=== PATIENT | male | born 1950 | race Caucasian/White ===

== ENCOUNTER → 2022-06-01 10:21 | Outpatient (REF) | payer OTHER, SELFPAY | LOC: RCS 10:21 | PROVIDERS: ATTENDING PHYSICIAN Internal Medicine Cardiovascular Disease; FAMILY PHYSICIAN Family Medicine | DX: I49.9 Cardiac arrhythmia, unspecified (principal); R94.31 Abnormal electrocardiogram [ECG] [EKG]; I10 Essential (primary) hypertension; E78.00 Pure hypercholesterolemia, unspecified | CPT/HCPCS: 93225; 93226 ==

== ENCOUNTER 2023-06-03 12:00 | Emergency (ER) | payer BC, SELFPAY ==
[2023-06-03 12:11] VITALS: BP 170/91
--- NOTE | 2023-06-03 12:23 | ED.GENMED ---
History of Present Illness
General
Chief Complaint: Blood Pressure Problem
Time Seen by Provider: 06/03/23 12:21
Travel History
Have you had any contact with someone who has COVID-19?: No
Do you have any symptoms of coronavirus? Fever > 100 degrees, chills, cough, shortness of breath, sore throat, loss of taste or smell, muscle aches, or headache?: No
History of Present Illness
History of Present Illness:
73-year-old male with history of hypertension presents the emergency department for evaluation of mild chest tightness as well as elevated blood pressures beginning yesterday. He denies any pain to the chest, denies any pleuritic worsening of
symptoms or exertional worsening of symptoms. He is approximately 3 weeks status post right total knee arthroplasty, states his rehab has been going well. He denies any significant leg swelling or calf discomfort. No recent fevers or chills.
Blood pressure has been markedly elevated despite taking his lisinopril that has been on for many years.
Review of Systems
Review of Systems
Allergies reviewed?: Yes
All Other Systems: ROS reviewed and negative except as documented in HPI and ROS
Phy Exam
Physical Exam
Physical Exam:
GEN: Well appearing, NAD, WDWN
HEENT: Oral mucosa moist, no scleral icterus
Cardiac: Regular rate and rhythm, no murmurs
Lung: No respiratory distress, no tachypnea, lungs clear to auscultation bilateral
MSK: No gross deformity or injuries. Status post right total knee arthroplasty, no wound dehiscence, incisional site is well-approximated. Range of motion trivial ecchymosis no extremity edema
Skin: Good color, no pallor or jaundice, no rashes
Neuro: AO x3, moves all extremities freely
Psych: Calm, cooperative
Course
Orders/Labs/Results
Orders:
Orders
06/03/23 12:13
Electrocardiogram (*1) Urgent
Reason for Study: Hypertension, Benign
EKG- Treatment ONCE
06/03/23 12:15
Electrocardiogram (*1) Urgent
Reason for Study: Fatigue / Weakness
EKG- Treatment ONCE
06/03/23 12:33
Venous Doppler Lwr Ext Rt [US Periph Venous LOWER Ext RT] Urgent
Comment:
Reason For Exam: calf/thigh pain, 3 wk s/p TKA
06/03/23 12:34
CR Chest - 2 Views Urgent
Comment:
Reason For Exam: chest tightness
06/03/23 12:41
Complete Blood Count/With Diff Urgent
Comprehensive Metabolic Panel Urgent
Troponin I Urgent
Abnormal Lab Results
06/03/23
12:41
RBC 3.82 L 10^6/uL
(4.70-6.10)
Hgb 11.4 L g/dL
(13.0-18.0)
Hct 32.2 L %
(39.0-52.0)
Abs Immat Gran (auto) 0.1 H 10^3/uL
(0-0.05)
Absolute Lymphs (auto) 1.1 L 10^3/uL
(1.2-3.4)
Immature Gran % 0.9 H %
(0-0.5)
Lymphocytes % 19.9 L %
(20.5-51.1)
Monocytes % 10.0 H %
(1.7-9.3)
BUN 27 H mg/dl
(9-20)
Glucose 119 H mg/dl
(70-99)
Total Protein 5.8 L g/dl
(6.3-8.2)
Albumin 3.3 L g/dl
(3.5-5.0)
06/03/23 12:41
06/03/23 12:41
Vital Signs
Initial and Last Documented VS:
Initial Vital Signs
Temp Pulse Resp BP Pulse Ox
98.3 F 93 16 170/91 98
06/03/23 12:11 06/03/23 12:11 06/03/23 12:11 06/03/23 12:11 06/03/23 12:11
Last Documented Vital Signs
Temp Pulse Resp BP Pulse Ox
98.3 F 72 12 177/83 99
06/03/23 12:11 06/03/23 14:29 06/03/23 14:29 06/03/23 15:25 06/03/23 14:29
MDM/Problems Addressed
MDM/Problems Addressed:
DVT ultrasound is negative for clot, labs are reassuring. EKG shows no signs of ischemia. Chest x-ray independently interpreted by me is unremarkable for acute disease. Doubt PE given the negative right lower extremity Doppler.
Comment
Comment:
EKG independently interpreted by me shows normal sinus rhythm at a rate of [address] changes concerning for ischemia
*Critical Care Note
Total Time (30-74mins, 75-104mins- exclusive of procedures): Not Applicable
ED Attending Note
-
Portions of this chart may have been created with voice recognition software.� Occasional wrong word or��sound alike� substitutions may have occurred due to the inherent limitations of voice recognition software.
Discharge Plan
Departure
Patient Disposition: Home (Routine Discharge)
Date of Disposition: 06/03/23
Time of Disposition: 15:31
Patient with high blood pressure during this ER visit?: No
Discharge Problem:
Elevated blood pressure reading
Instructions: High Blood Pressure (DC)
Referrals:
Ayush Perry MD [Family Provider] -
Activity Restrictions/Additional Instructions:
Discuss further blood pressure control with your primary care physician
Your ultrasound shows no evidence for blood clots
Interventions
Interventions:
ED- Fall Risk Assessment Last Done: 06/03/23 12:49
*ED COVID-19 Vaccine History Last Done: 06/03/23 12:11
ED- Cardiac Assessment Last Done: 06/03/23 12:49
ED- Neurological Assessment Last Done: 06/03/23 12:49
ED- Pulmonary Assessment Last Done: 06/03/23 12:49
[2023-06-03 12:49] VITALS: BMI 28.9
[2023-06-03 12:51] LABS: % Basophils 0.9 % (0-2); % Eosinophils 4.7 % (0-6); % Immature Granulocytes 0.9 % (0-0.5); % Lymphocytes 19.9 % (20.5-51.1); % Neutrophils 63.6 % (42.2-75.2); Absolute Basophils 0.1 10^3/uL (0-0.2); Absolute Eosinophils 0.3 10^3/uL (0-0.7); Absolute Immature Granulocytes 0.1 10^3/uL (0-0.05); Absolute Lymphocytes 1.1 10^3/uL (1.2-3.4); Absolute Monocytes 0.6 10^3/uL (0.1-0.6); Absolute Neutrophils 3.6 10^3/uL (1.4-6.5); Hematocrit 32.2 % (39.0-52.0); Hemoglobin 11.4 g/dL (13.0-18.0); Mean Corp Hgb Conc. 35.4 g/dL (33.0-37.0); Mean Corpuscular Hgb 29.8 pg (27.0-31.0); Mean Corpuscular Volume 84.3 fL (80.0-94.0); Mean Platelet Volume 9.7 fL (7.4-10.4); Nucleated Red Blood Cells % 0 % (-); Platelet Count 263 10^3/uL (130-400); Red Blood Cell Count 3.82 10^6/uL (4.70-6.10); Red Cell Dist. Width 13.2 % (11.5-14.5); White Blood Cell Count 5.7 10^3/uL (4.8-10.8)
[2023-06-03 13:13] LABS: ALT (SGPT) 37 U/L (0-50); AST (SGOT) 29 U/L (17-59); Albumin 3.3 g/dl (3.5-5.0); Alkaline Phosphatase 90 U/L (38-126); Blood Urea Nitrogen 27 mg/dl (9-20); Carbon Dioxide 25 mmol/L (22-30); Chloride 104 mmol/L (98-107); Estimated Creatinine Clearance 51 ml/min; Glucose 119 mg/dl (70-99); Potassium 3.9 mmol/L (3.5-5.1); Sodium 137 mmol/L (135-145); Total Bilirubin 0.6 mg/dl (0.2-1.3); Total Protein 5.8 g/dl (6.3-8.2); eGFR > 60.00
[2023-06-03 13:25] LABS: Troponin I < 0.012 ng/ml
[2023-06-03 13:26] VITALS: BP 178/77
[2023-06-03 14:00] VITALS: BP 190/98
[2023-06-03 15:25] VITALS: BP 177/83
== END 2023-06-03 15:51 | disposition home or self-care (01) ==
LOC: EMR 12:00
PROVIDERS: Physician Assistant; EMERGENCY PHYSICIAN Emergency Medicine; FAMILY PHYSICIAN Family Medicine
DX: I10 Essential (primary) hypertension (principal); Z96.651 Presence of right artificial knee joint
CPT/HCPCS: 99285; 71046; 80053; 84484; 85025; 93005; 93971

== ENCOUNTER 2023-06-19 12:14 | Emergency (ER) | payer OTHER, SELFPAY ==
[2023-06-19 12:22] VITALS: BP 197/99
[2023-06-19 12:46] LABS: % Eosinophils 2.8 % (0-6); % Immature Granulocytes 0.9 % (0-0.5); % Lymphocytes 29.9 % (20.5-51.1); % Monocytes 9.4 % (1.7-9.3); Absolute Basophils 0.1 10^3/uL (0-0.2); Absolute Eosinophils 0.2 10^3/uL (0-0.7); Absolute Immature Granulocytes 0.1 10^3/uL (0-0.05); Absolute Monocytes 0.6 10^3/uL (0.1-0.6); Absolute Neutrophils 3.7 10^3/uL (1.4-6.5); Hematocrit 38.3 % (39.0-52.0); Hemoglobin 13.1 g/dL (13.0-18.0); Mean Corp Hgb Conc. 34.2 g/dL (33.0-37.0); Mean Corpuscular Hgb 29.5 pg (27.0-31.0); Mean Corpuscular Volume 86.3 fL (80.0-94.0); Mean Platelet Volume 10.4 fL (7.4-10.4); Nucleated Red Blood Cells % 0 % (-); Platelet Count 266 10^3/uL (130-400); Red Blood Cell Count 4.44 10^6/uL (4.70-6.10); Red Cell Dist. Width 13.2 % (11.5-14.5); White Blood Cell Count 6.7 10^3/uL (4.8-10.8)
[2023-06-19 12:59] LABS: ALT (SGPT) 27 U/L (0-50); AST (SGOT) 27 U/L (17-59); Albumin 4.1 g/dl (3.5-5.0); Alkaline Phosphatase 78 U/L (38-126); Blood Urea Nitrogen 21 mg/dl (9-20); Calcium 9.6 mg/dl (8.4-10.2); Carbon Dioxide 25 mmol/L (22-30); Chloride 106 mmol/L (98-107); Glucose 109 mg/dl (70-99); Potassium 3.9 mmol/L (3.5-5.1); Sodium 136 mmol/L (135-145); Total Bilirubin 0.7 mg/dl (0.2-1.3); Total Protein 6.6 g/dl (6.3-8.2); eGFR > 60.00
[2023-06-19 13:09] LABS: Troponin I < 0.012 ng/ml
--- NOTE | 2023-06-19 16:48 | ED.GENMED ---
History of Present Illness
General
Chief Complaint: Chest Pain
Source: patient
Exam Limitations: none
Time Seen by Provider: 06/19/23 16:15
Nursing documentation reviewed up to this point in time: agreed with
Travel History
Have you had any contact with someone who has COVID-19?: No
Do you have any symptoms of coronavirus? Fever > 100 degrees, chills, cough, shortness of breath, sore throat, loss of taste or smell, muscle aches, or headache?: No
History of Present Illness
History of Present Illness:
Patient is a 73-year-old male with history of htn, cholesterol presents to the ER for evaluation of chest pain. Patient reports he was seen here in June 02 for chest pain. Chest pain started a week prior to that and since then he has had
intermittent chest pain. He reports it is worse at night and he is having trouble sleeping with it. He does notice he is burping more. He feels better if he sits up versus lying down. He denies any shortness of breath. He has since seen
cardiology, reports he has seen a physician diver assistant of Dr. Doan and is scheduled to have an echo on July 11. With continued chest pain he came to the ED.
patient presently is in physical therapy for right knee which was replaced in April. He reports no symptoms of chest pain during therapy. He is asymptomatic presently but does report he had an episode of chest pain in the waiting room.
Review of Systems
Review of Systems
Allergies reviewed?: Yes
All Other Systems: ROS reviewed and negative except as documented in HPI and ROS
Constitutional: Reports no symptoms; Denies fever
EENT: Reports no symptoms
Respiratory: Reports no symptoms; Denies trouble breathing
Cardiac: Reports chest pain; Denies diaphoresis, palpitations or syncope
ABD/GI: Reports other (increased burping ); Denies abdominal pain, nausea, vomiting or diarrhea
: Reports no symptoms
Musculoskeletal: Reports no symptoms
Neurological: Reports no symptoms
Hematologic/Lymphatic: Reports no symptoms
Psychiatric: Reports no symptoms
Phy Exam
General Physical Exam
General Presentation: no apparent distress
General age: appears stated age
General Skin: warm and dry
General Habitus: normal
General Mental: alert
General Hydration: appears well hydrated
Cardiovascular Exam
Cardiovascular Exam: regular rate/rhythm, no murmur and normal peripheral pulses
Pulmonary Exam
Pulmonary Exam: lungs clear and no respiratory distress
Gastrointestinal Exam
Gastrointestinal Exam: non tender and soft
Neurological Exam
Neurological Exam: alert and oriented x3
Musculoskeletal Exam
Musculoskeletal Exam: full ROM
Skin Exam
Skin Exam: normal color and warm/dry
Psychiatric Exam
Psychiatric Exam: normal mood/affect
Scores
Heart Score for Chest Pain Patients
STEMI patient?: Not applicable
Course
Orders/Labs/Results
Orders:
Orders
06/19/23 12:15
ECG [Electrocardiogram (*1)] Urgent
Reason for Study: Chest Pain
06/19/23 12:16
EKG- Treatment ONCE
06/19/23 12:28
Complete Blood Count/With Diff Urgent
Comprehensive Metabolic Panel Urgent
Troponin I Urgent
06/19/23 17:58
Pantoprazole [Protonix] 40 mg PO NOW STA
06/19/23 18:00
Vital Signs- Treatment ONCE
Frequency: Once
Abnormal Lab Results
06/19/23
12:28
RBC 4.44 L 10^6/uL
(4.70-6.10)
Hct 38.3 L %
(39.0-52.0)
Abs Immat Gran (auto) 0.1 H 10^3/uL
(0-0.05)
Immature Gran % 0.9 H %
(0-0.5)
Monocytes % 9.4 H %
(1.7-9.3)
BUN 21 H mg/dl
(9-20)
Glucose 109 H mg/dl
(70-99)
06/19/23 12:28
06/19/23 12:28
Vital Signs
Initial and Last Documented VS:
Initial Vital Signs
Temp Pulse Resp BP Pulse Ox
98.0 F 98 16 197/99 98
06/19/23 12:22 06/19/23 12:22 06/19/23 12:22 06/19/23 12:22 06/19/23 12:22
Last Documented Vital Signs
Temp Pulse Resp BP Pulse Ox
98.3 F 74 10 181/77 98
06/19/23 18:06 06/19/23 18:06 06/19/23 18:06 06/19/23 18:06 06/19/23 18:06
MDM/Problems Addressed
Differential Diagnosis Includes:
Not limited to CAD, reflux
MDM/Problems Addressed:
Patient is a 73-year-old male who presents to the ER for evaluation of chest pain. Patient has had chest pain since the middle of May. He was seen here June 02 for pain. Since then he has been eval by cardiology and has an outpatient echo
scheduled for July 11. Because of continued symptoms he presented here to the ER. He reports it is worse with laying down better with sitting up. He does report frequent burping. He denies any history of reflux.
On my exam patient is presently asymptomatic. Patient had full cardiac workup when he was here June 02. He is not short of breath with symptoms. When he was seen here during previous visit since he had a knee replacement in April he had an
ultrasound of his right lower extremity which was negative. He has been doing physical therapy since and with activity has no symptoms of chest pain. Patient is scheduled as documented for echo July 11. I spoke with cardiology group,
Edith who evaluated patient and felt that symptoms are consistent with reflux. This is consistent with the symptoms of burping more feeling better when he sits up. Will DC on Protonix 40 mg daily. Chest x-ray was not reordered as patient
recently had chest x-ray during previous ED workup June 02. .
Cardiology will schedule an outpatient stress test he feels comfortable going home prescription for Protonix was sent to pharmacy. He will still follow-up for his echo July 11. In addition patient was instructed by cardiology to double his
blood pressure medication.(lisinopril 20 mg currently . d/c w/ pt.
Chronic conditions affecting care:
htn
*Pulse Oximetry
Patient hypoxic: no
*EKG
Interpreted by ED Provider?: Yes
Comparison EKG: no changes
Heart Rate: 86
Rate: normal
Rhythm: sinus
QRS Pattern: normal QRS
Ischemia: no ischemia
*Critical Care Note
Total Time (30-74mins, 75-104mins- exclusive of procedures): Not Applicable
Patient Management
Discussion with other providers: Steel Rule Inspector (cardiology, DR Edith arriola pt. )
ED Attending Note
-
Portions of this chart may have been created with voice recognition software.� Occasional wrong word or��sound alike� substitutions may have occurred due to the inherent limitations of voice recognition software.
Discharge Plan
Departure
Patient Disposition: Home (Routine Discharge)
Date of Disposition: 06/19/23
Time of Disposition: 18:00
Patient with high blood pressure during this ER visit?: Yes
Condition: Fair
Covid-19: Not Applicable
Discharge Problem:
Chest pain, Gastroesophageal reflux disease
Instructions: Acid Reflux and GERD in Adults (DC), Chest Pain (DC), BLOOD PRESSURE
Prescriptions:
New
pantoprazole [Protonix] 40 mg tablet,delayed release (/EC)
40 mg PO DAILY Qty: 30 0RF
Referrals:
Ayush Perry MD [Family Provider] -
Kelly Goss MD [Active] -
Wilner Sharma MD [Active] -
Activity Restrictions/Additional Instructions:
As discussed start Protonix 40 mg daily starting tomorrow morning were given first dose here in the ER. Avoid spicy acidic foods, avoid spaghetti sauce or orange juice caffeine chocolate. Follow-up with cardiology as discussed
Cardiology will schedule a stress test for you and please follow-up for your echo as scheduled in June. Return if any worsening of symptoms.
Also please follow-up with family doctor and GI specialist for further evaluation of likely reflux
Interventions
Interventions:
*General Assessment Last Done: 06/19/23 18:03
*Neglect/Abuse Screening Last Done: 06/19/23 18:03
*ED COVID-19 Vaccine History Last Done: 06/19/23 12:22
ED- Cardiac Assessment Last Done: 06/19/23 18:06
Discharge Date and Time
Print Language: LAO
--- NOTE | 2023-06-19 17:34 | CON.CAR ---
Addendum entered and electronically signed by Wilner Sharma MD 06/19/23 17:53:
I saw and examined the patient.
The MAIL OPENER's note was reviewed and I agree with the note.
Comment: 73-year-old gentleman past medical history of hypertension, dyslipidemia and recent right total knee replacement presents for chest discomfort that has been intermittent for over a month. It is on the left side, it feels like a pressure
and is present at night when he goes to lie to bed. He has had to sit up to sleep in a chair or moved to his right side to feel relief of the symptom. He has had increased eructation. With his recent knee pain he has been on multiple NSAIDs and
pain medications. He is doing physical therapy for her knee, he has never had the feeling with any sort of exertion. On exam he has a regular rate and rhythm with normal S1-S2 no murmurs or gallops are appreciated lungs are clear to auscultation
bilaterally abdomen is soft nondistended on the tender. He is alert and oriented x 3. Extremities are warm well-perfused likely sinus or edema. EKG shows sinus rhythm without any ischemic changes compared to the prior in May 2023. We discussed
the differential diagnosis of his symptoms, most likely diagnosis is that of reflux or gastritis. It is reassuring that he is able to participate in physical therapy without any symptoms. I would recommend initiating PPI treatment. Additionally,
will we discussed the option of admitting him for a stress test versus an expedited evaluation as an outpatient. Given the normal troponins, atypical history, he prefers the latter. Our office will call him with an appointment for stress test this
week. He already has an appointment for an echo coming up. He will keep this appointment. Hopefully he will get relief with the PPI.
Original Note:
Consultation
Consultation Request
Date/Time Consultation Requested: 06/19/231699
Date/Time Consultation Performed: 06/19/231724
Requesting Provider: Susan Hagan
Performing Provider: Roshni MALDONADO for Dr. Sharma
Reason for Consultation: chest discomfort
Medical History
-
Chief Complaint: chest discomfort
History of Present Illness:
73 y/o male with hypertension, dyslipidemia, and OA s/p right TKA 05/15/23 who has been having chest discomfort. Briefly, he had his surgery 05/15/23. Afterwards, his medicines were changed from Celebrex and hydrocodone to meloxicam and hydromorphone.
About 5 days later, he noticed and intermittent left-sided chest pressure. It would last for 20 seconds to 4 minutes at a time. It seems worse at night and he will go sit up and it seemed better. He stopped his ortho meds several days ago. It has
not gotten better. EKG and troponin are normal. BP is very elevated in ER. Home checks he is 140-160 systolically. He is in no distress at the time of my assessment.
Past Medical History
Past Medical History: HTN, Hypercholesterolemia and Other (OA s/p right TKA)
Social History
Tobacco: Former Smoker
Family History
Family History: CAD (dad CABG age 85)
Allergies / Home Medications
Allergy/AdvReac Type Severity Reaction Status Date / Time
NKA - No Known Allergies Allergy Unknown Uncoded 06/19/23 12:24
Review of Systems
-
History Source: Patient
All other systems: Negative unless noted
Cardiac: Chest Pain
Physical Exam
Vital Signs
Temp Pulse Resp BP Pulse Ox
98.0 F 98 16 197/99 98
06/19/23 12:22 06/19/23 12:22 06/19/23 12:22 06/19/23 12:22 06/19/23 12:22
Lab Results
06/19/23 12:28
06/19/23 12:28
Troponin I < 0.012 ng/ml 06/19/23 12:28
Physical Exam
General: Well Developed, Well Nourished and No Apparent Distress
HEENT: Normocephalic and Anicteric
Respiratory: Clear and Non Labored Respirations
Cardiac: Regular Rhythm
Musculoskeletal: No Edema
Skin: Warm
Neuro: AO x 3
Psych: Calm
Impression / Plan
-
Chest discomfort:
-trop and EKG are normal
-plan for OP Lexiscan stress test this week
-add PPI
HTN:
-BP elevated
-increase ACEI
HLD:
-continue statin
Data Reviewed
-
EKG: Tracing Personally Visualized and interpreted (NSR)
Radiology: Report Reviewed by me (CXR 06/03/23: No acute cardiopulmonary process.)
Medical Tests (Nuc Med, Echo etc): Report Reviewed by me (echo 06/09/22: Normal left ventricular size, wall thickness and systolic function. LV ejection fraction is 60-65%. Mild mitral regurgitation.)
Labs: Labs Reviewed by me
[2023-06-19 18:02] VITALS: BP 181/77; BMI 28.8
[2023-06-19 18:06] VITALS: BP 181/77
[2023-06-19] MEDS: PROTONIX 40 MG PO (18:07)
[2023-06-19 18:24] VITALS: BP 181/77
== END 2023-06-19 18:42 | disposition home or self-care (01) ==
LOC: EMR 12:14
PROVIDERS: Emergency Medicine; EMERGENCY PHYSICIAN Emergency Medicine; FAMILY PHYSICIAN Family Medicine; OTHER PHYSICIAN Internal Medicine Cardiovascular Disease
DX: R07.89 Other chest pain (principal); K21.9 Gastro-esophageal reflux disease without esophagitis; I10 Essential (primary) hypertension; E78.00 Pure hypercholesterolemia, unspecified
CPT/HCPCS: 99284; 80053; 84484; 85025; 93005

== ENCOUNTER → 2023-07-04 07:20 | Outpatient (REF) | payer OTHER, SELFPAY | LOC: DHCBC/DCA 07:20 | PROVIDERS: ATTENDING PHYSICIAN Internal Medicine Cardiovascular Disease; FAMILY PHYSICIAN Family Medicine | DX: R07.89 Other chest pain (principal); I10 Essential (primary) hypertension; R94.31 Abnormal electrocardiogram [ECG] [EKG] | CPT/HCPCS: 78452; 93017; A9500; J2785 ==

== ENCOUNTER → 2023-07-13 10:49 | Outpatient (REF) | payer OTHER, SELFPAY | LOC: DHCBC MAIN 10:49 | PROVIDERS: ATTENDING PHYSICIAN Nurse Practitioner; FAMILY PHYSICIAN Family Medicine | DX: R07.89 Other chest pain (principal) | CPT/HCPCS: 93306 ==

== ENCOUNTER → 2024-03-16 07:50 | Outpatient (REF) | payer OTHER, SELFPAY | LOC: MRI 3T 07:50 | PROVIDERS: ATTENDING PHYSICIAN Orthopaedic Surgery; FAMILY PHYSICIAN Family Medicine | DX: M54.50 Low back pain, unspecified (principal) | CPT/HCPCS: 72148 ==

== ENCOUNTER 2024-09-02 06:23 | Day surgery (SDC) | payer OTHER, SELFPAY | END 2024-09-02 11:56 | disposition home or self-care (01) | LOC: GI 06:23 | PROVIDERS: ATTENDING PHYSICIAN Internal Medicine Gastroenterology | DX: Z12.11 Encounter for screening for malignant neoplasm of colon (principal); K64.8 Other hemorrhoids; Z86.0100 Personal history of colon polyps, unspecified | CPT/HCPCS: G0105 ==